=== PATIENT | female | born 1990 | race Two or more races ===

== ENCOUNTER 2019-08-28 21:20 | Emergency (ER) | payer OTHER ==
[~2019-08-28] VITALS: Ht 165.1 cm; Wt 63.5 kg
--- NOTE | 2019-08-28 21:50 | NUR ---
PATIENT WAS MSE BY DR SHEIKH IN ROOM 05B.
[2019-08-28] MEDS ORDERED: IBUPROFEN 600 MG TABLET PO ONE (22:00)
[2019-08-28] MEDS ORDERED: IBUPROFEN 600 MG TABLET ONE (22:11)
[2019-08-28 23:35] VITALS: BP 115/77
--- NOTE | 2019-08-28 23:35 | NUR ---
Patient discharged to home in stable condition. Written and verbal after care instructions given. Patient verbalizes understanding of instructions. Stressed follow up or return to ER for worsening s/s.
== END 2019-08-28 23:35 | disposition home or self-care (01) ==
LOC: ER 21:22
DX: S92.355A Nondisplaced fracture of fifth metatarsal bone, left foot, initial encounter for closed fracture (principal); X50.1XXA Overexertion from prolonged static or awkward postures, initial encounter; Y93.89 Activity, other specified; Y92.013 Bedroom of single-family (private) house as the place of occurrence of the external cause; F90.9 Attention-deficit hyperactivity disorder, unspecified type
CPT/HCPCS: 73610; 73630; A4663